=== PATIENT | male | born 1960 | race Caucasian/White ===

== ENCOUNTER 2019-08-16 08:23 | Inpatient (IN) ==
--- NOTE | 2019-08-04 07:33 | ANES ---
Anesthesia Pre Procedure Eval HOME MEDICATIONS NK 07/29/19 [Last Taken Unknown] Allergies/Adverse Reactions: Allergies Allergy/AdvReac Type Severity Reaction Status Date / Time No Known Allergies Allergy Verified 07/29/19 09:24 - Planned Procedure Planned Procedure: Rt Arthroplasty Total Knee - NO patella resurfacin Medication List Reviewed:: Yes Allergies Verified: Yes Medical History (Last Reviewed 08/04/19 @ 07:31 by Michael Torres CRNA) Post-traumatic osteoarthritis of right knee (Chronic) Diverticulitis Onset Date: Unknown Knee pain Onset Date: Unknown Primary localized osteoarthritis of knee Onset Date: 04/14/17 Surgical History (Last Reviewed 08/04/19 @ 07:31 by Michael Torres CRNA) History of arthroscopic knee surgery Onset Date: 09/2003 Crenshaw- right History of colonoscopy Onset Date: 11/25/11 Judy- normal History of tonsillectomy and adenoidectomy Onset Date: Unknown as a child History of umbilical hernia repair Onset Date: 11/25/11 Judy- incarcerated umbilical hernia repair with small ventralex mesh Family History (Last Reviewed 08/04/19 @ 07:31 by Michael Torres CRNA) Mother Hypertension Father Diabetes Brother Alive and well Sister Alive and well - Family Anesthesia History Family History:: no untoward family reactions to anesthesia - Airway/Neck/Teeth Within Normal Limits:: Yes Teeth Condition: intact Neck Exam: full range of motion Mallampatti Score: 2 Thyromental (T-M) distance: > 6 cm Mandibulo Hyoid distance: > 3 cm - Respiratory Respiratory Physical: lungs clear Smoking Status: Never smoker Sleep Apnea currently treated: No Sleep Apnea by current assessment: No Comments:: snores - Cardiovascular Tolerate Activity: Good Heart Sounds: S1 & S2, Regular - Gastrointestinal NPO since: instructed NPO after MN - Anesthesia Assessment and Plan ASA Class: PS, II Anesthesia Type Plan: Spinal - adductor canal block Planned difficult intubation/equipment available: No
[~2019-08-16 08:23] MED LIST: MORPHINE SULFATE 15 MG TABLET.SA PO PRN; ROPIVACAINE HCL/PF 100 MG, EPINEPHrine 0.2 MG, KETOROLAC TROMETHAMINE 30 MG in NORMAL S... IJ PRN; TRANEXAMIC ACID 1,000 MG in NORMAL SALINE 100 ML IV PRN; ceFAZolin SODIUM 1 GM VIAL IV PRN
[2019-08-16] MEDS ORDERED: FLU VACC QS2019-20(6MOS UP)/PF 60 MCG/0.5 ML SYRINGE IM ONE (08:42)
[2019-08-16] MEDS: RINGER'S SOLUTION,LACTATED 1,000 ML IV PRN ×2 (08:55→10:20)
[2019-08-16] MEDS ORDERED: PROPOFOL VIAL IV ONE (09:11)
[2019-08-16] MEDS ORDERED: MIDAZOLAM HCL/PF 5 MG/ML VIAL ONE (09:11)
[2019-08-16] MEDS ORDERED: BUPIVACAINE HCL/EPINEPHRINE 50 ML VIAL ONE (09:11)
[2019-08-16] MEDS ORDERED: MAG HYDROX/ALUMINUM HYD/SIMETH 30 ML UDC PO PRN (12:00)
[2019-08-16] MEDS ORDERED: MORPHINE SULFATE 2 MG/ML DISP.SYRIN IV PRN (12:00)
[2019-08-16] MEDS ORDERED: ZOLPIDEM TARTRATE 5 MG TABLET PO PRN (12:00)
[2019-08-16] MEDS ORDERED: diphenhydrAMINE HCL 50 MG/ML VIAL IV PRN (12:00)
[2019-08-16] MEDS ORDERED: ACETAMINOPHEN 500 MG TABLET PO PRN (12:00)
[2019-08-16] MEDS ORDERED: ONDANSETRON HCL/PF 2 MG/ML VIAL IV PRN (12:00)
[2019-08-16] MEDS ORDERED: MAGNESIUM HYDROXIDE 30 ML UDC PO PRN (12:00)
[2019-08-16] MEDS ORDERED: DEXTROSE 5%-LACTATED RINGERS 1,000 ML IV PRN (12:00)
--- NOTE | 2019-08-16 12:00 | OR ---
Operative Report - Dictated Report Narrative: Date: 08/16/2019 Preoperative diagnosis: Right knee degenerative joint disease. Postoperative diagnosis: Right knee degenerative joint disease. Procedure: Right total knee arthroplasty without patellar resurfacing. Surgeon: Jose Zaragoza M.D. Building Pressure Washer: Aakash Farmer PA-C (provided and essential set of skilled, educated hands that assisted with transfer, positioning, prepping, draping, manipulation, retraction, placement of jigs, injection, insertion of implants, irrigation, closure wounds, and dressings all of which could not be performed by the available surgical crew) Anesthesia: Spinal with regional block and local periarticular joint injection. Complications: None Specimens: Bone. Estimated blood loss: Minimal. Tourniquet time: 100 Minutes at 300 millimeters of mercury. Retained implants: Depuy Attune size 8 right lugged cemented posterior stabilized femoral component. Size 7 fixed-bearing cemented tibial platform. 8 by 5 millimeter posterior stabilized cross-linked tibial insert. Indications: Mr. Hoffman is a 59-year-old gentleman who has had longstanding right knee pain and arthrosis. This patient was followed in my clinic for period of time with significant complaints of right knee pain consistent with arthritic changes. He had failed conservative measures including, but not limited to, activity modification, passage of time, medications, and other conservative measures. Patient wished to proceed with surgical treatment. The risks, benefits, and alternatives were discussed in clinic. The risks of , blood clots, bleeding, infection, nerve/tendon blood vessel/ injury, malposition of components, intraoperative fracture, postoperative limited range of motion, persistent pain, failure of components, and need for additional procedures. Patient wished to proceed consent was obtained after answering all questions. Procedure: After marking the correct extremity on the floor, the patient was taken to the operating room. A timeout was performed. IV antibiotics consisting of Ancef were administered prior to the procedure. A regional followed by spinal anesthetic was induced by anesthesia, per my request, on the operative table with all bony prominences well-padded. Padilla catheter was placed, and a bump was placed under the operative side buttock. SCDs and ANUEL hose were utilized on the nonoperative leg. A well-padded tourniquet was applied to the operative thigh. The operative leg was then pre-scrubbed with alcohol, prepped, and draped in a standard sterile fashion. After exsanguinating the extremity with an Esmarch bandage, the tourniquet was inflated. After marking out the anterior knee for standard incision centered over the patella, the skin was incised and dissected down to the joint retinaculum. The joint retinaculum was marked out as well as the horizontal axis of the patella, and a standard medial parapatellar arthrotomy was then made. The most proximal aspect of the quadriceps tendon and the patella tendon insertion were protected from release. A partial synovectomy was performed as well as a resection of the infrapatellar fat pad. The distal femoral fat pad proximal to the trochlea was also resected using cautery. The soft tissues were elevated off the medial aspect of the proximal tibia using a Hernandez elevator ensuring that we did not transect the medial collateral ligament. Upon initial evaluation range of motion was approximately 0 degrees to 130 degrees of flexion. There were signs of advanced arthrosis in the medial and lateral and to a much lesser degree the patella femoral joint spaces. There were large marginal osteophytes which were removed with a rongeur. The knee was hyperflexed and the patella was tucked laterally. Protecting the surrounding soft tissues with Homans, an entry drill was placed down the femoral canal using Whitesides line for guidance into the entry point. The intramedullary femoral alignment arlyn was utilized in order to cut the distal femur in 5 degrees of valgus resecting 10 millimeters of bone. Next the distal femur was sized to a size 8. A posterior referencing guide was utilized to place the distal femoral cutting block in 3 degrees of external rotation. This was pinned into place. The rotation was confirmed both visually and based on anatomic landmarks. The 4 in 1 cutting jig of the appropriate size was utilized in order to make all bony cuts. The angle wing was used to ensure no notching. Retractors were utilized in order to protect surrounding soft tissues. This cut did not result in any excessive notching. We then cut the box centered over the distal femur. This allowed for resection of the anterior and posterior cruciate ligaments. I then turned my attention to the preparation of the tibia. Using an extra medullary tibial alignment arlyn, 2 millimeters of bone was resected off the medial articular surface. This was made perpendicular to the mechanical axis of the joint with the alignment arlyn centered over the ankle mortise. The alignment arlyn was checked and was noted to be parallel to the mechanical axis, centered over the medial one third of the tibial tubercle, paralleling the anterior surface of the tibia. We then turned our attention to the remaining meniscus and soft tissues. These were removed while protecting the surrounding ligaments and soft tissues. The marginal osteophytes off the anterior, posterior, medial, lateral aspects of the femur and tibia were remov ed. The tibia was sized out to a size 7. Next the tibia was drilled and punched in an externally rotated position. Next the trial femur and a series of tibial inserts were utilized in order to allow for full extension and maximal flexion. It was found that a 5 millimeter insert gave the best range of motion and stability at multiple flexion points as well as at full extension there was less than 2 mm of gapping both medially and laterally. There is minimal anterior translation with the knee at 90 degrees of flexion and no signs of being able to dislocate the knee. Per our preoperative discussion and secondary the fact that his work requires a lot of kneeling we did not resurface the patella. At this point, it was felt these were the appropriate sized implants, and all trials were removed. The standard periarticular joint injection consisting of ropivacaine, Toradol, and epinephrine were injected into the periarticular joint tissues. The bony surfaces were thoroughly irrigated with a pulsatile-suction saline irrigation device. A bone plug from the prior resected anterior chamfer cut was placed into the drill hole at the distal femur. The bony surfaces were then dried in preparation for placement of the implants. The cement was vacuum mixed per the marketing data specialist's instructions. The cement was placed on the dry bony surfaces and posterior aspect of the implants. The implants were impacted into place, removing all extruded cement. At this point anesthesia administered tranexamic acid per protocol intravenously. The knee was placed in extension with axial loading with the trial insert while the cement cured. Once the cement cured, all remaining extruded cement was removed. The knee was placed through a range of motion with the trial insert to ensure appropriate range of motion and stability. Final range of motion was approximately 0 to 130 degrees. The knee was again thoroughly irrigated with pulsatile saline lavage. The final polyethylene insert was then impacted into place ensuring no retained soft tissues. The remaining periarticular joint injection was injected. A medium Hemovac drain was placed exiting superior laterally. The knee was then placed over a triangle and the arthrotomy was closed with interrupted #1 Vicryl after thoroughly irrigating the joint. The deep and subcutaneous tissues were closed with interrupted 0 and 3-0 Vicryl respectively. Skin was closed with a running subcutaneous 3-0 Monocryl and Prineo Dermabond dressing. 4 x 4's, Sof-Rol, and a full leg Jimbo wrap were applied. All sponge, needle, blade, and instrument counts were correct prior to closing the wounds. Postoperative condition: The patient was awoken and transferred to the postanesthesia care unit in stable condition. Plan is to be admitted to the inpatient medical/surgical floor postoperatively for 24 hours of IV antibiotics, physical therapy, occupational therapy, and medical comanagement. Patient will be weightbearing as tolerated with range of motion as tolerated. DVT prophylaxis will be with SCDs, ANUEL hose, and pharmacological anticoagulation. Anticipated hospital stay is approximately 1-3 days.
--- NOTE | 2019-08-16 12:21 | ANES ---
Anesthesia Procedure Note Procedure Note: ANESTHESIA PROCEDURE NOTE Date of Procedure: [08/16/2019 Time of procedure: 10 AM. Performed by: JAIR Summers CRNA, MSN Feather Mixer: Jayda Rsusell RN. Preprocedure diagnosis: Post total knee arthroplasty pain. Post procedure diagnosis: Same. Procedure: Right adductor Canal Block. Indications: Post right total knee arthroplasty pain relief. Findings: See below. Details of the procedure: The patient was brought to OR #2 and placed in supine position. The patient's right femoral area to the knee was prepped with chlorhexidine and using ultrasound guidance the right femoral artery and nerve was identified and then followed to the level of the adductor canal. Lidocaine 1% was infiltrated to the skin of the intended injection site. Under ultrasound guidance the saphenous nerve was approached with visualization of a 4 inch shielded block needle. Once saphenous nerve was identified with proximity to the needle tip, the saphenous nerve was surrounded with 20 mL bupivacaine 0.5% with 1-200,000 epinephrine. Please see radiology/ultrasound report for details and retained images of the procedure. EBL: 0 Fluids: N/A. Specimen: N/A. Post procedure condition: The patient tolerated the procedure well. No complications were noted. Thank you for this consultation. Afshin Carlos CRNA, ARNP, MSN
--- NOTE | 2019-08-16 12:21 | ANES ---
Post Anesthesia Discharge - Transfer of Care Transfer of Care handoff given to nurse: Yes - Discharge from PACU Discharge from PACU when meets criteria: Yes - Alert and comfortable.
--- NOTE | 2019-08-16 12:51 | ANES ---
Post Anesthesia Assessment - Vital Signs Vitals: Last Vital Signs Temp 36.1 C 08/16/19 12:35 Pulse 54 L 08/16/19 12:35 Resp 16 08/16/19 12:35 BP 125/71 08/16/19 12:35 Pulse Ox 98 08/16/19 12:35 Airway Patency: Normal - Mental Status Level Of Consciousness: Awake, Alert, Appropriate - Pain Level Pain Score: 0 - N/V Assessment Nausea/Vomiting Presence: None Dehydration:: No
[2019-08-16] MEDS: KETOROLAC TROMETHAMINE 15 MG/ML VIAL IV SCH ×2 (13:05→17:24)
[2019-08-16] MEDS: ceFAZolin SODIUM 1 GM in DEXTROSE 5 % IN WATER 50 ML IV SCH ×4 (13:08→20:13)
[2019-08-16] MEDS: oxyCODONE HCL/ACETAMINOPHEN 1 TAB TABLET PO PRN ×2 (15:23→20:19)
[2019-08-16] MEDS: MORPHINE SULFATE 15 MG TABLET.SA PO SCH (20:18)
[2019-08-16] MEDS ORDERED: SENNOSIDES/DOCUSATE SODIUM 1 TAB TABLET PO SCH (21:00)
[2019-08-17] MEDS: KETOROLAC TROMETHAMINE 15 MG/ML VIAL IV SCH ×3 (00:47→12:27)
[2019-08-17] MEDS: oxyCODONE HCL/ACETAMINOPHEN 1 TAB TABLET PO PRN ×2 (00:48→10:46)
[2019-08-17] MEDS: ceFAZolin SODIUM 1 GM in DEXTROSE 5 % IN WATER 50 ML IV SCH ×2 (01:01)
[2019-08-17 06:50] LABS: Anion Gap 7.9 mmol/L (6.8-13.8); BUN/Creatinine Ratio 15.3 (9.0-21.6); Calcium * 8.1 mg/dL (7.9-10.9); Carbon Dioxide 30.5 mmol/L (24-32.6); Potassium 4.4 mmol/L (3.4-4.6)
[2019-08-17] MEDS: MORPHINE SULFATE 15 MG TABLET.SA PO SCH (08:46)
[2019-08-17 09:03] LABS: Hematocrit 36.5 % (42.0-52.0); Hemoglobin 12.2 gm/dL (13.5-18.0); Mean Cell Volume 91.9 fl (78-100); Mean Corpuscular Hemoglobin 30.7 pg (27-31); Mean Corpuscular Hgb Conc 33.4 g/dl (32-36); Mean Platelet Volume 10.2 fl (8-11.3); Platelet Count 192 K/mm3 (150-450); Red Blood Count 3.97 M/mm3 (4.7-6.0); Red Cell Distribution Width 13.2 % (11.5-14.0); White Blood Count 7.1 K/mm3 (4.0-10.5)
[2019-08-17] MEDS ORDERED: ENOXAPARIN SODIUM 40 MG/0.4 ML SYRG SC SCH (11:01)
--- NOTE | 2019-08-17 11:33 | DS ---
(1) Status post right knee replacement Problem: Acute (2) Acute blood loss anemia Problem: Acute Date of Discharge:: 08/17/19 Hospital Course: Mr. Arias was admitted to the floor after undergoing right total knee arthroplasty. Tolerated this well. Was admitted to the floor postoperatively for 24 hours of IV antibiotics, pain control, medical comanagement, and occupational and physical therapy. OT and PT were consulted to assist with activities of daily living and ambulation. Was made weightbearing as tolerated with range of motion as tolerated. Pain was initially controlled with IV regimen. This was transitioned to oral once tolerating a by mouth intake. Was resumed on home diet and medications. Had a Padilla catheter inserted and the operating room which was discontinued on postoperative day 1. A drain was placed intraoperatively into the knee which was discontinued on postoperative day 1. Lovenox SCD and ANUEL hose were utilized for DVT prophylaxis. Vital signs remained stable to the hospital course. Serial labs were obtained which showed a final hemoglobin of 12.2 grams down from 15.7 g preoperatively. The anemia was asymptomatic and will observe clinically. BMP was reviewed and was stable. Physical examination throughout the hospital course showed an extremity that had sensation that was intact to light touch, palpable pulses, a benign wound, motor intact to the toes, ankle, and knee. Knee range of motion was approximately 0 degrees to 70 degrees. Once an oral pain regimen was tolerated and physical therapy goals were met, it was felt that they were stable for discharge to home. Instructions: Continue with weightbearing as tolerated and range of motion as tolerated. It is OK to shower on the wound if it is not draining. If you note any drainage or for comfort you can cover with dry gauze and tape. Change every 2-3 days as needed. Continue with physical therapy. Resume home diet. Report any fever over 101.5 Fahrenheit, uncontrolled pain, increased drainage, foul odor of drainage, new or increased calf pain or shortness of breath, or any other significant complaints. A 325mg dialy aspirin will be started after finishing anticoagulation if not allergic. Continue with ANUEL hose on the operative extremity until instructed otherwise. No driving until instructed otherwise. Follow up in approximately 10-14 days. Procedures Performed: see notes below List Procedures: Right total knee arthroplasty Results and Findings: Lab Pending Results 08/17/19 06:22: WBC 7.1, RBC 3.97 L, Hgb 12.2 L, Hct 36.5 L, MCV 91.9, MCH 30.7, MCHC 33.4, RDW 13.2, Plt Count 192, MPV 10.2 08/17/19 06:22: Sodium 141, Plasma Sodium 141, Potassium 4.4, Chloride 107 H, Carbon Dioxide 30.5, Anion Gap 7.9, BUN 17, Creatinine 1.11, Est GFR (Non-Af Amer) 72, BUN/Creatinine Ratio 15.3, Random Glucose 106, Calcium 8.1 Discharge Location: Home Disposition: Home self-care Condition: Good Discharge Activity: Activity as tolerated, Weight bearing, Other - With wheeled walker Discharge Diet: General/regular food Referrals: Rigoberto Barahona DO [Primary Care Provider] - Jose Zaragoza MD [Staff Physician] - 09/07/19 9:00 am Problem Oriented Discharge Instructions to Patient/Family: Total Knee Replacement, Care After, [id number] Additional Patient Instructions (free text): Physical Therapy at [facility] in [place] on August 19 at 10:00am. Please fax demographics, PT order to [phone]. Follow up with Dr. Zaragoza in the Orthopedic office on FridaySeptember 07 at 9:00am. Prescriptions (Any new or edited meds): Enoxaparin Sodium [Lovenox] 40 mg SC Q24H #7 disp.syrin [facility]: [facility] [place] [place] Morphine Sulfate [Ms Contin] 15 mg PO Q12H #14 tablet.sa Transmission [facility]: [facility] [place] oxyCODONE HCL/ACETAMINOPHEN [Percocet 5 MG/325 MG] 2 tab PO Q4H PRN #56 tab PRN Reason: Moderate Pain (Pain Scale 4-6) Transmission [facility] [place] [place] Sennosides/Docusate Sodium [Senokot-S] 2 tab PO HS #30 tab Transmission Status[facility] [place] [place] Complete Home Medications List: Complete Home Medication List: Enoxaparin Sodium [Lovenox] 40 mg SC Q24H #7 disp.syrin 08/17/19 Morphine Sulfate [Ms Contin] 15 mg PO Q12H #14 tablet.sa 08/17/19 Sennosides/Docusate Sodium [Senokot-S] 2 tab PO HS #30 tab 08/17/19 oxyCODONE HCL/ACETAMINOPHEN [Percocet 5 MG/325 MG] 2 tab PO Q4H PRN #56 tab 08/17/19 Amb Orders for Discharge: PT Evaluation and Treatment* Facility: [facility], Location: Rehabilitation Services
[2019-08-17 15:40] VITALS: BP 130/76
== END 2019-08-17 15:40 | disposition home or self-care (01) | DRG 470 ==
LOC: MS 08:23 → EDSTATUS 10:00
PROVIDERS: ADMIT Orthopaedic Surgery; ATTEND Orthopaedic Surgery
DX: M17.11 Unilateral primary osteoarthritis, right knee; Z23 Encounter for immunization; D62 Acute posthemorrhagic anemia
CPT/HCPCS: 36415; 73560; 80048; 85027; 90686; 97110; 97116; 97161; 97530; J2405